=== PATIENT | female | born 1945 | race Caucasian/White ===

== ENCOUNTER → 2020-04-07 | Outpatient (CLI) | payer MEDICARE, OTHER | LOC: KOH-I 04-06 09:30 | DX: S82.831A Other fracture of upper and lower end of right fibula, initial encounter for closed fracture (principal); M89.8X7 Other specified disorders of bone, ankle and foot; W19.XXXA Unspecified fall, initial encounter | CPT/HCPCS: 73700 ==

== ENCOUNTER → 2020-05-17 | Outpatient (CLI) | payer MEDICARE, OTHER | LOC: KOH-I 13:30 | DX: S82.831A Other fracture of upper and lower end of right fibula, initial encounter for closed fracture (principal) | CPT/HCPCS: 73610 ==

== ENCOUNTER → 2020-06-07 | Outpatient (CLI) | payer MEDICARE, OTHER | LOC: KOH-I 12:30 | DX: S82.831G Other fracture of upper and lower end of right fibula, subsequent encounter for closed fracture with delayed healing (principal) | CPT/HCPCS: 73610 ==